=== PATIENT | male | born 1965 | race Caucasian/White ===

== ENCOUNTER 2017-01-22 07:35 | Emergency (ER) | payer SELFPAY ==
[2017-01-22] MEDS ORDERED: KEPPRA XR750 MG (07:50)
== END 2017-01-22 08:57 | disposition home or self-care (01) ==
LOC: SED 07:35
DX: S22.31XD Fracture of one rib, right side, subsequent encounter for fracture with routine healing (principal); S51.811D Laceration without foreign body of right forearm, subsequent encounter; I10 Essential (primary) hypertension; L03.113 Cellulitis of right upper limb; F41.9 Anxiety disorder, unspecified; F32.9 Major depressive disorder, single episode, unspecified; K21.9 Gastro-esophageal reflux disease without esophagitis; G40.909 Epilepsy, unspecified, not intractable, without status epilepticus; F10.10 Alcohol abuse, uncomplicated; F17.210 Nicotine dependence, cigarettes, uncomplicated; V89.2XXD Person injured in unspecified motor-vehicle accident, traffic, subsequent encounter
CPT/HCPCS: 99281